=== PATIENT | female | born 1970 | race Hispanic/Latino ===

== ENCOUNTER → 2020-11-13 | Day surgery (SDC) | payer BC, OTHER ==
[~2020-11-13] MED LIST: METHIMAZOLE; TAPAZOLE5 MG PO
[2020-11-13 09:40] VITALS: BP 109/78
== END | disposition home or self-care (01) ==
LOC: OR 06:21
PROVIDERS: ATTEND Internal Medicine Gastroenterology
DX: K63.89 Other specified diseases of intestine (principal); Z86.010 Personal history of colon polyps; K64.8 Other hemorrhoids; E05.90 Thyrotoxicosis, unspecified without thyrotoxic crisis or storm; Z86.16 Personal history of COVID-19
CPT/HCPCS: 45378; 45380; 81025

== ENCOUNTER → 2024-01-04 | Outpatient (REF) | payer OTHER | LOC: US 08:38 | PROVIDERS: ATTEND Family Medicine | DX: R10.9 Unspecified abdominal pain (principal); R10.2 Pelvic and perineal pain | CPT/HCPCS: 76700; 76856 ==

== ENCOUNTER 2024-06-02 20:43 | Emergency (ER) | payer OTHER ==
[~2024-06-02] VITALS: Ht 154.9 cm; Wt 59.9 kg
[2024-06-02 21:12] VITALS: PULSE 106; RESP 17; TEMP 99.5; O2SAT 99
[2024-06-02] MEDS ORDERED: MEDROL4 M2 PO (21:12)
== END 2024-06-02 21:20 | disposition home or self-care (01) ==
LOC: ER 21:10
DX: L23.9 Allergic contact dermatitis, unspecified cause (principal)
CPT/HCPCS: 99282

== ENCOUNTER 2024-10-28 06:19 | Emergency (ER) | payer OTHER ==
[~2024-10-28] VITALS: Ht 154.9 cm; Wt 59.0 kg
[~2024-10-28 06:19] MED LIST changes: +MEDROL4 M2 PO
[2024-10-28 06:28] VITALS: TEMP 98.7
[2024-10-28 07:22] LABS: AMPHETAMINES SCREEN,URINE NEGATIVE (NEGATIVE); CANNABINOIDS SCREEN,URINE POSITIVE (NEGATIVE); COCAINE SCREEN,URINE NEGATIVE (NEGATIVE); METHADONE SCREEN, URINE NEGATIVE (NEGATIVE); OPIATES SCREEN,URINE NEGATIVE (NEGATIVE)
[2024-10-28 07:23] LABS: BASOPHILS % 0.8 % (0.0-1.0); EOSINOPHILS % 0.0 % (0.0-6.0); LYMPHOCYTES % 17.0 % (18.0-39.1); MONOCYTES % 4.5 % (4.4-11.3); NEUTROPHILS % 77.5 % (38.7-80.0); RED CELL DISTRIBUTION WIDTH 12.2 % (11.7-14.4)
[2024-10-28 07:25] LABS: EST GLOMERULAR FILTRATION RATE 94.0 ML/MIN (>=60)
[2024-10-28 07:41] VITALS: PULSE 71; RESP 16
[2024-10-28 07:46] VITALS: BP 114/80; PULSE 71; RESP 16; O2SAT 97
== END 2024-10-28 07:48 | disposition home or self-care (01) ==
LOC: ER 06:41
DX: R41.0 Disorientation, unspecified (principal); T40.715A Adverse effect of cannabis, initial encounter; Y92.89 Other specified places as the place of occurrence of the external cause; E05.90 Thyrotoxicosis, unspecified without thyrotoxic crisis or storm
CPT/HCPCS: 36415; 80048; 80307; 85025; 99283